=== PATIENT | female | born 1970 | race Caucasian/White ===

== ENCOUNTER 2017-05-18 16:30 | Outpatient (RCR) | payer OTHER, SELFPAY ==
--- NOTE | 2017-04-12 17:06 | HP.PTEVAL_ITS ---
Patient's Visit Information ZOEY ESPINOZA is a 46 year old F referred to Physical Therapy by Geetha FOUNTAIN with a diagnosis of cervical radiculopathy. Date of Evaluation: 04/12/17 Physical Therapist: Shawna Fritz - Visit Plan Frequency: 2x /Week Duration: 4 Weeks Plan: 2X/ week for DN to mid traps, levator, occiput, pec (L) as well as pec stretches , scapular strength, postural exercises with HEP and modalities PRN - Subjective Subjective: Pt reports that she has been having the problem off and on for years and she gets pain on the L side of her chest and down the L arm, neck is stiff and sore and the L handgets numb. Pt went to the Chiropractor and she worked on L pec muscle and it is better. IF she does any exercises above the head she has increased pain and cant sleep and it gets tighter and tighter. She had an x-ray 4 years ago. This comes and goes and she knows what to avoid. She doesnt sleep and she gets REYES when this occurs. Neck does not feel felxible and she does not feel she has full mobility. She is a teacher. She goes to [facility]. Pt admits to using her mid traps with lifting and when sitting with posture or with stressful situations. - Pain L shoulder pain Pain Intensity (Out of 10): 0 Neck pain Pain Intensity (Out of 10): 0 - Objective L handed 64# L and R is 65#. C-spine AROM: Rotation B 100%, Ext 75%, SB B 75% , fkexion 100%. Full B shoulder AROM. UE MMT: B shld flex, abd Er, and IR 4/ 5 B. Tender under the L acromion, Tender B mid traps, levator, sub occiput. Pt felt a goos stretch with c-spine distraction. Tight Pecs B - Goals Goal 1:: I HEP Goal Time Frame: 4-6 Weeks Goal 2:: Return to work out without having shoulder or neck pain with arm strengthening Goal Time Frame: 4-6 Weeks Goal 3:: Sit with upright posture during treatment sessions Goal Time Frame: 4-6 Weeks - Rehabilitation Potential Rehabilitation Potential: Good - Anticipated Interventions Patient/Client Instruction: Educate patient on: Condition, Plan of Care For the Purpose of:: To decrease pain, To increase ROM, To improve nutrient delivery to tissue, To improve muscle performance and motor function, To improve ability to perform ADL's, To increase tolerance to activity/condition/ position, To improve health of tissue, To decrease soft tissue restriction, To increase flexibility/ROM Therapeutic Exercise to Include: Strength training, Postural training, Flexibilty training, Passive ROM, Active ROM, Scapular Strength/Stabilization For the Purpose of:: To decrease pain, To increase ROM, To improve nutrient delivery to tissue, To improve muscle performance and motor function, To improve ability to perform ADL's, To improve ability of physical actions for home/community/work/leisure, To improve health of tissue, To decrease soft tissue restriction, To increase flexibility/ROM Manual Therapy Techniques to Include: Mobilization, Passive ROM, Functional dry needling, Soft tissue mobilization For the Purpose of:: To decrease pain, To increase ROM, To improve nutrient delivery to tissue, To improve muscle performance and motor function, To improve health of tissue, To increase flexibility/ROM IF ES: Yes Cryotherapy (ice pack, ice massage): Yes Thermo therapy (hot pack): Yes Ultrasound (thermal/non thermal): Yes For the Purpose of:: To decrease pain, To increase ROM, To improve nutrient delivery to tissue, To improve muscle performance and motor function, To improve health of tissue, To decrease soft tissue restriction Thank you for the opportunity to evaluate your patient. For Medicare and Medicare HMO plans, please review the plan of care and approve it. It will need to be FAXED BACK to us at [phone] for Medicare purposes. Please let me know if there are questions or concerns regarding this plan of care. Physician Signature: Date:
--- NOTE | 2017-08-19 09:48 | HP.PTDCSUM_ITS ---
HP - PT D/C Summary It has been my pleasure to treat ZOEY ESPINOZA under orders from Geetha Galaviz, for the diagnosis of cervical radiculopathy for a total of 9 visit(s). Discharge Date: 08/19/17 Please see the following information for a summary of their discharge status. - Subjective Subjective: Pt reports that she is doing really well and would like to put PT on hold and see if she can maintain her pain level with posture and work outs at her gym. - Pain L shoulder pain Pain Intensity (Out of 10): 1 Neck pain Pain Intensity (Out of 10): 0 back pain Pain Intensity (Out of 10): 0 - Objective Objective/Function: C-spine AROM: flexion 100%, Rot B 100%, ext 95%, SB B 100% . Tightness felt along the levators B, mid traps. Good posture dring treatment today. - Goals Goal 1:: I HEP Goal Progress: Goal Met Goal 2:: Return to work out without having shoulder or neck pain with arm strengthening Goal Progress: Progressing Goal 3:: Sit with upright posture during treatment sessions Goal Progress: Goal Met - Plan Plan: Hold chart X 2 weeks and then DC if pt does not schedule another appt in 2 weeks. - D/C Information Discharge Comments: DC PT If there are questions or concerns regarding this patient's physical therapy, please feel free to call me at [phone]. Thank you for the referral of this patient. Sincerely, Shawna Fritz
== END 2017-05-18 19:00 | disposition home or self-care (01) ==
LOC: PT 16:30
PROVIDERS: Family Provider Internal Medicine; PCP Internal Medicine; Visit Provider Internal Medicine
DX: M54.12 Radiculopathy, cervical region (principal)
CPT/HCPCS: 97014; 97110; 97140; 97161; 97530; G0283

== ENCOUNTER → 2017-09-26 16:09 | Outpatient (CLI) | payer OTHER, SELFPAY ==
--- NOTE | 2017-09-26 16:12 | US_ITS ---
STUDY: ULTRASOUND OF THE FEMALE PELVIS - COMPLETE REASON FOR EXAM: Female, 47 years old. Abdominal pain and bloating LMP: Unknown. TECHNIQUE: Transabdominal and Transvaginal. TECHNICAL QUALITY: Adequate. COMPARISON: None. FINDINGS: The uterus is anteverted and is in a midline position. The uterus measures 7.1 x 3.7 x 2.7 cm. There is a Nabothian cyst of the cervix. The endometrium measures 3 mm in thickness, and is hyperechoic. There is no demonstrated endometrial mass. There is no demonstrated myometrial mass. I.U.D. - The patient does not have an I.U.D. The right ovary is visualized. The right ovary measures 2.2 x 2.1 x 0.8 cm. There is no right ovarian cyst or ovarian mass. There is no visualized right adnexal mass or complex lesion. There is normal arterial and normal venous vascularity. The left ovary is visualized. The left ovary measures 1.6 x 1.2 x 1.0 cm. There is no left ovarian cyst or ovarian mass. There is no visualized left adnexal mass or complex lesion. There is normal arterial and normal venous vascularity. There is no fluid in the cul-de-sac. The pre void volume of the bladder was 124 ml. US/Transvaginal Non- IMPRESSION: Normal female pelvis. Electronically Signed: Alfredo Wells MD at 23:55 EDT , Service support ,
== END ==
PROVIDERS: Family Provider Internal Medicine; PCP Internal Medicine; Visit Provider Nurse Practitioner
DX: R10.9 Unspecified abdominal pain (principal)
CPT/HCPCS: 76830; 93976

== ENCOUNTER → 2017-10-07 09:26 | Outpatient (CLI) | payer OTHER, SELFPAY ==
--- NOTE | 2017-10-07 09:27 | RAD_ITS ---
PROCEDURE: SMALL BOWEL SERIES DATE OF EXAMINATION: October 07, 2017.. INDICATION: Female, 47 years old. Abdominal pain and cramping. Diarrhea. PHYSICIAN: Farrukh Simmons M.D. FLUOROSCOPY TIME (if supplied): (0:43) minutes/seconds TECHNIQUE: Radiographic and fluoroscopic images were taken of the small intestine following the ingestion of barium. COMPARISON: None. FINDINGS: A preliminary supine KUB was obtained. There is an unremarkable bowel gas pattern. Fecal material is present throughout the colon. The lung bases are unremarkable. The osseous structures are normal. The patient orally ingested approximately 12 ounces of thin barium Normal visualized fundus, body, and antrum of the stomach. Normal duodenal bulb, C-loop, and proximal jejunum. Normal visualized mucosal folds of the jejunum and ileum. There are no demonstrated dilatations, strictures, or masses of the small intestine. There is no mass displacement of the loops of small intestine. There is a normal motor pattern with barium reaching the colon within approximately 30 minutes. Spot films under fluoroscopic observation demonstrated a normal terminal ileum and ileocecal valve. RAD/Small Bowel Series Only IMPRESSION: Normal small bowel series. Electronically Signed: Farrukh Simmons MD at 13:46 EDT Tel [phone], Service support ,
== END ==
PROVIDERS: Family Provider Internal Medicine; PCP Internal Medicine; Visit Provider Nurse Practitioner
DX: R10.9 Unspecified abdominal pain (principal); R14.0 Abdominal distension (gaseous)
CPT/HCPCS: 74250

== ENCOUNTER → 2017-10-10 15:38 | Outpatient (CLI) | payer OTHER, SELFPAY ==
--- NOTE | 2017-10-10 12:45 | COLBX_PTH ---
PATIENT: ZOEY ESPINOZA [facility] U#:[id number] AGE/SX: 54/F ROOM: RE10/10/[address]: Dr. Moustapha Sanches MD : 1970 BED: DIS: SPEC #: [id number] RECD: 10/10/17 15:13 STATUS: DMITRI NAVID #: [id number] JOEL: 10/10/17 12:[address]: Moustapha Sanches DEPT: SURGICAL PATHOLOGY RECD BY: Phillip Patel ENTERED: 10/12/17 09:09 SP TYPE: COLON BX LENA DR: SADE Tissues: A - COLON BIOPSY B - Cecum, NOS C - Sigmoid colon biopsy Procedures: Surgery Specimen Level IV HEADER OPERATION: Colonoscopy with biopsy and polypectomy PRE-OP DIAGNOSIS: Diarrhea/bloating TISSUE SUBMITTED: A. Right and left colon biopsy ? rule out microscopic colitis, B. Cecum polyp biopsy ? rule out adenoma, C. Distal sigmoid polyp ? rule out adenoma MICROSCOPIC DIAGNOSIS A. Right and left colon biopsy: Focal acute colitis. See microscopic description and comment. B. Cecum polyp, polypectomy: Tubular adenoma. C. Distal sigmoid polyp, polypectomy: Fragments of tubulovillous adenoma. SJ:lyndsey 10/13/17 COMMENT A. Correlation with clinical, endoscopic findings and appropriate follow up are necessary. MICROSCOPIC DESCRIPTION Slides are reviewed. A. The specimen shows fragments of colonic mucosa with acute and chronic inflammatory cell Infiltrates in the lamina propria and cryptitis. Crypt abscesses, glandular distortion and granulomas are not seen. The finding of focal acute colitis is usually an incidental finding. Rarely can it be associated with infectious, self limited colitis or inflammatory bowel disease. GROSS DESCRIPTION A - Received in fixative is one container labeled with the patient's name and designated right and left colon. The specimen consists of multiple irregular fragments of light sr soft tissue that in aggregate measure 2 x 0.5 x 0.1 cm. The specimen is totally submitted in one cassette. B - Received in fixative is one container labeled with the patient's name and designated cecum polyp. The specimen consists of one irregular fragment of light sr soft tissue that measures 0.3 x 0.3 x 0.1 cm. The specimen is totally submitted in one cassette. C - Received in fixative is one container labeled with the patient's name and designated distal sigmoid. The specimen consists of two polypoid pieces of sr soft tissue measuring 1 x 0.7 x 0.7 cm and 1.3 x 1 x 1 cm. Both pieces are bisected. The entire specimen is submitted in one cassette. / MARGI:lyndsey 10/12/17 TC:1 CPT: 69395 x3
== END ==
PROVIDERS: Visit Provider Internal Medicine Gastroenterology
DX: R19.7 Diarrhea, unspecified (principal); R14.0 Abdominal distension (gaseous)
CPT/HCPCS: 88305

== ENCOUNTER → 2017-12-22 14:46 | Outpatient (CLI) | payer OTHER, SELFPAY ==
--- NOTE | 2017-12-22 14:49 | BI_ITS ---
MAMMOGRAPHY - BILATERAL SCREENING 3-D ENZO SYNTHESIS REASON FOR EXAM: Female, 47 years old. Bilateral Screening 3-D tomosynthesis. PERTINENT HISTORY: No significant family history. TECHNIQUE: 2-D mammograms and 3-D Enzo synthesis of the breast (s) were performed. CAD was performed. COMPARISON: 04/09/2016 through 03/02/2014. FINDINGS: The breast composition is composed of scattered fibroglandular density. Scattered benign appearing calcifications are seen. No dense spiculated masses or suspicious microcalcification cluster are identified. No architectural distortion or asymmetric density is identified. There is no skin thickening or nipple retraction identified. There has been no significant change identified since the prior study. BI/SCREENING MAMM (CAD), BILAT IMPRESSION: No mammographic sign of malignancy. Routine yearly mammograms recommended. ASSESSMENT CATEGORY: BIRADS Category 2: Benign. A letter regarding these results will be sent to the patient by the facility within 30 days. FOLLOW UP RECOMMENDATION: Yearly follow up mammogram recommended. (A) Negative mammographic results should not deter biopsy as a palpable lesion if present should be followed based on clinical grounds and biopsy performed if clinically persistent for 3 months or increasing size. Approximately 10% of breast cancers are not detected by mammography. A normal mammogram should not delay biopsy of a clinically suspicious abnormality. Electronically Signed: Jean-Pierre Edgar, at 18:02 EDT Tel , Service support ,
--- NOTE | 2017-12-22 14:50 | BD_ITS ---
STUDY: DUAL ENERGY X-RAY ABSORPTIOMETRY / DXA REASON FOR EXAM: Female, 47 years old. Early menopause TECHNIQUE: Bone Mineral Density (BMD) measurements of lumbar spine and bilateral hips were obtained. COMPARISON: None. FINDINGS: Lumbar Spine (L1-L4): g/cm2 (1.092) / T-score (-0.7) / Z-score (-0.3) Findings are suggestive of normal bone density with a low fracture risk. Left Femur Total: g/cm2 (1.110) / T-score (0.8) / Z-score (1.3) Left Femoral Neck: g/cm2 (1.040) / T-score (0.0) / Z-score (0.8) Right Femur Total: g/cm2 (1.045) / T-score (0.3) / Z-score (0.7) Right Femoral Neck: g/cm2 (0.993) / T-score (-0.3) / Z-score (0.4) BD/Dexa Bone Density Study IMPRESSION: The patient is considered normal as outlined below according to World Pierre Organization (WHO) criteria with a low fracture risk. Reference Information: The T-score is the number of standard deviations above or below the standard which is normal for young adults at their peak bone mineral density. The World Health Organization (WHO) interprets the T-scores as follows: Above -1 Normal bone density Between -1 and -2.5 Osteopenia Equal to / or below -2.5 Osteoporosis As a practical clinical guideline, osteopenia may be graded as follows: Mild -1 through -1.5 Moderate -1.6 through -2.0 Severe -2.1 through -2.4 The Z-score is the number of standard deviations above or below age-matched controls. A Z-score of less than -1.5 would be considered abnormal. References: 1. NIH Osteoporosis and Related Bone Diseases http://www.osteo.org 2. International Society for Clinical Densitometry http://www.iscd.org 3. National Osteoporosis Foundation http://www.nof.org Electronically Signed: Brock Louis MD at 8:28 EDT , Service support ,
== END ==
PROVIDERS: PCP Internal Medicine; Visit Provider Internal Medicine
DX: Z12.31 Encounter for screening mammogram for malignant neoplasm of breast (principal); Z78.0 Asymptomatic menopausal state
CPT/HCPCS: 77063; 77067; 77080

== ENCOUNTER → 2018-04-26 14:53 | Outpatient (CLI) | payer OTHER, SELFPAY ==
--- NOTE | 2018-04-26 14:56 | US_ITS ---
STUDY: THYROID ULTRASOUND REASON FOR EXAM: Female, 48 years old. Thyromegaly, history of Synthroid. TECHNIQUE: Ultrasound evaluation of the thyroid was performed with real-time and static balderas-scale imaging. COMPARISON: None. FINDINGS: RIGHT LOBE: The right thyroid gland measures 34 x 10 x 14 mm. The gland is diffusely heterogeneous. Inferior to the right thyroid and there is a nodule measuring 7 x 6 x 5 mm. There is a 9 x 5 x 7 mm heterogeneously hypoechoic part cystic and part solid nodule of the right thyroid gland. LEFT LOBE: The left thyroid measures 35 x 9 x 10 mm, diffusely heterogeneous. No dominant nodule. Bilaterally, thyroid vascularity is normal. ISTHMUS: The isthmus measures 2 mm, heterogeneous echotexture. . US/Thyroid IMPRESSION: A 7 x 6 x 5 mm nodule lies inferior to the margin of the right thyroid gland and may represent a small lymph node or small exophytic thyroid nodule. The gland is diffusely heterogeneous bilaterally, not enlarged. These features are consistent with sequela of chronic thyroiditis. There is no dominant nodule requiring biopsy. For the existing small thyroid nodules, follow-up surveillance imaging would be appropriate. Follow-up ultrasound in approximately one year is recommended. Electronically Signed: Hermilo Heredia MD at 16:32 EST Tel , Service support ,
== END ==
PROVIDERS: Family Provider Internal Medicine; PCP Internal Medicine; Referring Provider Internal Medicine; Visit Provider Internal Medicine
DX: E01.0 Iodine-deficiency related diffuse (endemic) goiter (principal)
CPT/HCPCS: 76536

== ENCOUNTER → 2018-12-25 | Outpatient (CLI) | payer OTHER, SELFPAY ==
--- NOTE | 2018-12-25 15:00 | BI_ITS ---
BILATERAL DIGITAL MAMMOGRAM WITH TOMOSYNTHESIS: Mediolateraloblique and craniocaudal views was performed. In the superior lateral aspect of the left breast at about the 1:00 position is a questionable density which was not seen on the previous study. This probably represents a focal area of fibrocystic change as it is best seen on the craniocaudal image and more difficult to visualize on the MLO image. Because underlying mass lesion cannot be completely excluded a targeted left breast ultrasound of the superior lateral aspect of the left breast is recommended for additional evaluation. No cluster of microcalcifications or architectural distortion is seen. No evidence of skin thickening is identified. Comparison is made to previous study obtained on 12/22/2017. Breast Density: The breast tissue is heterogeneously dense, which may obscure small masses. CAD was used to assist in final assessment. IMPRESSION: NORMAL MAMMOGRAM BILATERALLY. FINAL ASSESSMENT: A questionable density is noted in the superior lateral aspect of the left breast at the 1:00 position which probably represents focal fibrocystic change, however, underlying mass lesion cannot be completely excluded. For this reason, a targeted left breast ultrasound to the superior lateral aspect the left breast is recommended for further evaluation. FINAL ASSESSMENT: BI-RAD CATEGORY 0 INCOMPLETE: (NEEDS ADDITIONAL IMAGINING EVALUATION) YEARLY MAMMOGRAPHY RECOMMENDED Approximately 10% of breast cancers are not detected by mammography. A normal mammogram should not delay biopsy of a clinically suspicious abnormality. Electronically Signed: Jose Enrique Baldwin, at 18:04 EDT Tel , Service support , BI/SCREEN MAMM (CAD) W/ENZO ARVIZU
== END | disposition home or self-care (01) ==
LOC: OPBI 14:59
PROVIDERS: Family Provider Internal Medicine; PCP Internal Medicine; Referring Provider Internal Medicine; Visit Provider Internal Medicine
DX: Z12.31 Encounter for screening mammogram for malignant neoplasm of breast (principal)
CPT/HCPCS: 77063; 77067

== ENCOUNTER → 2019-01-02 | Outpatient (CLI) | payer OTHER, SELFPAY ==
--- NOTE | 2019-01-02 15:05 | US_ITS ---
STUDY: ULTRASOUND BREAST - LEFT REASON FOR EXAM: Female, 48 years old. Abnormal screening mammogram. TECHNIQUE: Axial and longitudinal images of the LEFT breast were performed with a high resolution ultrasound transducer. COMPARISON: Comparison is made with prior mammogram dated December 25, 2018. FINDINGS: LEFT Breast: The upper outer quadrant of the left breast was examined by ultrasound. No sonographic abnormality is seen. US/Breast Limited Unilateral IMPRESSION: No sonographic abnormality is seen. Follow-up mammogram in 1 year is recommended. ASSESSMENT CATEGORY: BIRADS Category 2: Benign. A letter regarding these results will be sent to the patient by the facility within 30 days. Electronically Signed: Farrukh Simmons, at 10:39 EDT , Service support ,
== END | disposition home or self-care (01) ==
LOC: OPUS 15:04
PROVIDERS: Family Provider Internal Medicine; PCP Internal Medicine; Referring Provider Internal Medicine; Visit Provider Internal Medicine
DX: R92.2 Inconclusive mammogram (principal)
CPT/HCPCS: 76642

== ENCOUNTER → 2019-12-03 08:49 | Outpatient (CLI) | payer OTHER, SELFPAY ==
--- NOTE | 2019-12-03 08:53 | RAD_ITS ---
STUDY: X-RAY - PELVIS AND BILATERAL HIPS REASON FOR EXAM: Female, 49 years old. PAIN IN BOTH HIPS, WORSE SOMETIMES ON THE RIGHT AND RADIATES INTO BOTH LEGS AT TIMES. HAS BEEN GOING ON FOR A COUPLE OF MONTHS NOW. NO KNOWN INJURY. TECHNIQUE: AP view of the pelvis.? 2 views of the right hip, and 2 views of the left hip were obtained. COMPARISON: None. FINDINGS: There is a non-specific bowel gas pattern. Normal visualized soft tissue structures. 5 Normal bilateral iliac wings, sacroiliac joints and visualized sacrum. Normal bilateral superior and inferior pubic rami. Normal pubic symphysis. Normal bilateral ischial tuberosities. Normal visualized right femoral head. Normal right acetabulum. Normal right hip joint. Normal visualized left femoral head. Normal left acetabulum. Normal left hip joint. RAD/Hips B/L min 2 views w/ Pelvis IMPRESSION: Normal x-ray examination of the pelvis and bilateral hips. Electronically Signed: Farrukh Simmons, at 15:49 EDT , Service support ,
== END ==
PROVIDERS: PCP Internal Medicine; Referring Provider Internal Medicine; Visit Provider Internal Medicine
DX: M25.551 Pain in right hip (principal); M25.552 Pain in left hip
CPT/HCPCS: 73521

== ENCOUNTER → 2020-03-31 08:59 | Outpatient (CLI) | payer OTHER, SELFPAY ==
[2020-03-06 09:35] VITALS: BMI 34.7
--- NOTE | 2020-03-31 10:50 | TELEMED_ITS ---
[facility] has confirmed receipt of a request for visit. This document confirms receipt of the order initiating the consult. To find the results of the consultation, please view the patient's reports for the scanned Telemed Consult.
== END ==
PROVIDERS: PCP Internal Medicine; Referring Provider Psychiatry & Neurology Neurology; Visit Provider Psychiatry & Neurology Neurology
DX: G40.909 Epilepsy, unspecified, not intractable, without status epilepticus (principal)
CPT/HCPCS: 95819

== ENCOUNTER 2021-04-15 15:30 | Outpatient (RCR) | payer OTHER, SELFPAY ==
--- NOTE | 2021-02-06 16:03 | HP.PTEVAL ---
Patient's Visit Information ZOEY ESPINOZA is a 50 year old F referred to Physical Therapy by Dr. Geetha Galaviz DO with a diagnosis of R hip pain. Date of Evaluation: 02/06/21 Physical Therapist: LEESA Valdes - Visit Plan Frequency: 1x/Week Duration: 4 Weeks Plan: 2X/ week for 4 weeks for L pirformis stretches, foam rolling, strengthening of L hip and core with HEP and modalities as needed with HEP. HEP: chair piriformis foam rolling and supine and seated piriformis stretches - Subjective Pt reports that both her hips bother her but the R is the worst. She reports that it is always there but it is worse with deep bending, climbing a latter, hip flexion, scrub floor on hands and knees. She can not lay on that R side. It wakes her up. It has been going on for 3-4 years and progressivly gotten worse. She feels it in her but and down the front of the leg and her leg gets tired in the knee. She has moved into a new house and has been doing a lot of bending and ladder stuff etc. She points to the pain being R Glut area and at the hip socket. X-ray was clear. She has tons of LBP. She does see a chiropractor. Going up and down steps are not an issue unless really does too much. - Pain R hip pain Pain Intensity (Out of 10): 0 - Objective Gait: walks with decrease stance time on the R LE and + Trendelenburg. Normal IT band length on the R. Tight R piriformis on the R. LE MMT:B hip flex 4-/5, R hip abd 4-/5 and L hip abd 4/5, B hip ext 3+/5, B knee flex and ext 4/5. Palpation: tenderness felt at piriformis tendon and along the muscle belly. Patellar DTR's 2+/3 B. Pt felt the foam rolling of the piriformis sitting on the chair and supine and seated piriformis stetches. -SLR - Balance/Special Test Scores Lower Extremity Functional Score: 52 - Goals Goal 1:: I HEP Goal Time Frame: 4-6 Weeks Goal 2:: Increase L hip strength to 4/5 L hip ext, flex, abd Goal Time Frame: 4-6 Weeks Goal 3:: Decrease L hip pain to less than 2/10 with ladders, squatting etc Goal Time Frame: 4-6 Weeks - Rehabilitation Potential Rehabilitation Potential: Good - Anticipated Interventions Patient/Client Instruction: Educate patient on: Condition, Plan of Care For the Purpose of:: To decrease pain, To decrease swelling/inflammation, To increase ROM, To improve nutrient delivery to tissue, To improve muscle performance and motor function, To improve ability to perform ADL's, To increase tolerance to activity/condition/position, To improve performance and independence with ADL's, To improve gait and locomotor functions, To improve health of tissue, To decrease soft tissue restriction, To increase flexibility/ROM Therapeutic Exercise to Include: Strength training, Flexibilty training, Gait and locomotor training, Passive ROM, Active ROM, Dynamic Lumbar Stabilization For the Purpose of:: To decrease pain, To increase ROM, To improve nutrient delivery to tissue, To improve muscle performance and motor function, To increase tolerance to activity/condition/position, To improve performance and independence with ADL's, To decrease level of supervision to perform tasks, To improve ability of physical actions for home/community/work/leisure, To improve gait and locomotor functions, To improve health of tissue, To decrease soft tissue restriction, To increase flexibility/ROM Manual Therapy Techniques to Include: Mobilization, Passive ROM, Soft tissue mobilization For the Purpose of:: To decrease pain, To decrease swelling/inflammation, To improve nutrient delivery to tissue, To improve muscle performance and motor function IF ES: Yes Cryotherapy (ice pack, ice massage): Yes Thermo therapy (hot pack): Yes Ultrasound (thermal/non thermal): Yes For the Purpose of:: To decrease pain, To decrease swelling/inflammation, To increase ROM, To improve nutrient delivery to tissue, To improve muscle performance and motor function Thank you for the opportunity to evaluate your patient. For Medicare and Medicare HMO plans, please review the plan of care and approve it. It will need to be FAXED BACK to us at [phone] for Medicare purposes. For Medicare only, by signing this I certify the plan of care. Please let me know if there are questions or concerns regarding this plan of care. Physician Signature: Date:
--- NOTE | 2021-04-15 17:57 | HP.PTDCSUM ---
It has been my pleasure to treat ZOEY ESPINOZA referred by Dr. Geetha Galaviz DO, with the diagnosis of R hip pain for a total of 11 visit(s). Discharge Date: 04/15/21 Please see the following information for a summary of their discharge status. Subjective: Pt rolled over in bed Tuesday morning and her neck popped and she could hardly move. B sides of her hips hurt today. She reports that PT makes her feel better temporarily. She feels that her hip might be coming from her back and wants to see and Ortho. Instructed pt to call her referring physician to talk next step. SHe also started taking celebrex the last 2 days and wants to try it for a week and see if it helps. R hip pain Pain Intensity (Out of 10): 4 % Improvement: 25 Objective/Function: LE MMT: B hip flex 4/5, hip abd B 4/5, hip ext 4-/5 B Goal 1:: I HEP Goal Progress: Goal Met Goal 2:: Increase L hip strength to 4/5 L hip ext, flex, abd Goal Progress: Goal Met Goal 3:: Decrease L hip pain to less than 2/10 with ladders, squatting etc Goal Progress: Not Progressing Plan: Return to PCP for next step... MRI vs Ortho consult. Continue HEP. Discharge Comments: DC PT back to physician If there are questions or concerns regarding this patient's physical therapy, please feel free to call me at [phone]. Thank you for the referral of this patient. Sincerely, Shawna Fritz, MPT Balance/Gait/Functional tests - Balance/Special Test Scores Lower Extremity Functional Score: 49
== END 2021-04-15 19:00 | disposition home or self-care (01) ==
LOC: PT 15:30
PROVIDERS: PCP Internal Medicine; Referring Provider Internal Medicine; Visit Provider Internal Medicine
DX: M25.551 Pain in right hip (principal)
CPT/HCPCS: 97035; 97110; 97161; 97530

== ENCOUNTER 2021-06-25 10:09 | Outpatient (CLI) | payer OTHER, SELFPAY ==
--- NOTE | 2021-06-25 10:21 | EKG12_ITS ---
Test Reason : PREOP Blood Pressure : / mmHG Vent. Rate : 073 BPM Atrial Rate : 073 BPM P-R Int : 134 ms QRS Dur : 074 ms QT Int : 372 ms P-R-T Axes : 008 010 019 degrees QTc Int : 409 ms Normal sinus rhythm with sinus arrhythmia Low voltage QRS Borderline ECG Reconfirmed by RASHAWN FAGAN, ARIS ([id number]), editor continuity and script EDDIE HUANG ([id number]) on 07/02/2021 9:00:41 AM Referred By: Dimas Epps Confirmed By:ARIS MOROCHO MD
== END 2021-06-25 23:59 | disposition home or self-care (01) ==
PROVIDERS: PCP Internal Medicine; Referring Provider Urology; Visit Provider Urology
DX: Z01.810 Encounter for preprocedural cardiovascular examination (principal)
CPT/HCPCS: 93005

== ENCOUNTER 2021-07-01 08:08 | Outpatient (CLI) | payer OTHER, SELFPAY ==
--- NOTE | 2021-07-01 08:10 | BI_ITS ---
MAMMOGRAPHY - BILATERAL SCREENING REASON FOR EXAM: Female, 51 years old. Routine annual screening examination. PERTINENT HISTORY: Non-contributory. TECHNIQUE: Digital bilateral breast enzo (3D mammographic acquisition) in the CC and MLO projections. 2-D mediolateral oblique (MLO) and craniocaudad (CC) views of both breasts were obtained. CAD: Full Field Digital Mammography with Computer Added Detection was performed. COMPARISON: Comparison is made with prior examination dated 12/25/2018 and 12/22/2017. FINDINGS: Breast Composition: There are scattered areas of fibroglandular density. There are no dominant masses or suspicious calcifications. No other significant abnormalities are identified. There has been no significant change since the prior study. BI/SCRN MAMM (CAD)W/ENZO BILAT IMPRESSION: Stable bilateral screening mammogram. Yearly follow-up mammogram recommended. (A) ASSESSMENT CATEGORY: BIRADS Category 1: Negative. A letter regarding these results will be sent to the patient by the facility within 30 days. Approximately 10% of breast cancers are not detected by mammography. A normal mammogram should not delay biopsy of a clinically suspicious abnormality. [id number] Electronically Signed: Farrukh Simmons MD at 9:36 EDT ,
== END 2021-07-01 23:59 | disposition home or self-care (01) ==
LOC: OPBI 08:08
PROVIDERS: PCP Internal Medicine; Visit Provider Internal Medicine
DX: Z12.31 Encounter for screening mammogram for malignant neoplasm of breast (principal)
CPT/HCPCS: 77063; 77067

== ENCOUNTER → 2022-08-19 | Outpatient (CLI) | payer OTHER, SELFPAY | END | disposition home or self-care (01) | LOC: RAD 12:44 | PROVIDERS: PCP Internal Medicine; Referring Provider Internal Medicine; Visit Provider Internal Medicine | DX: Z00.00 Encounter for general adult medical examination without abnormal findings (principal) ==

== ENCOUNTER → 2022-09-24 | Outpatient (CLI) | payer OTHER, SELFPAY ==
--- NOTE | 2022-09-24 09:32 | BI_ITS ---
MAMMOGRAPHY - BILATERAL SCREENING REASON FOR EXAM: Female, 52 years old. Routine annual screening examination. PERTINENT HISTORY: Non-contributory. TECHNIQUE: Digital bilateral breast enzo (3D mammographic acquisition) in the CC and MLO projections. 2-D mediolateral oblique (MLO) and craniocaudad (CC) views of both breasts were obtained. CAD: Full Field Digital Mammography with Computer Added Detection was performed. COMPARISON: Comparison is made with prior study dated July 01, 2021 and December 25, 2018. FINDINGS: Breast Composition: There are scattered areas of fibroglandular density. There are no dominant masses or suspicious calcifications. No other significant abnormalities are identified. There has been no significant change since the prior study. BI/SCRN MAMM (CAD)W/ENZO BILAT IMPRESSION: Stable bilateral screening mammogram. Yearly follow-up mammogram recommended. (A) ASSESSMENT CATEGORY: BIRADS Category 1: Negative. A letter regarding these results will be sent to the patient by the facility within 30 days. Approximately 10% of breast cancers are not detected by mammography. A normal mammogram should not delay biopsy of a clinically suspicious abnormality. [id number] Electronically Signed: Farrukh Simmons MD at 11:08 EDT ,
== END | disposition home or self-care (01) ==
LOC: OPBI 09:31
PROVIDERS: PCP Internal Medicine; Referring Provider Internal Medicine; Visit Provider Internal Medicine
DX: Z12.31 Encounter for screening mammogram for malignant neoplasm of breast (principal)
CPT/HCPCS: 77063; 77067

== ENCOUNTER → 2023-03-29 | Outpatient (CLI) | payer OTHER, SELFPAY ==
--- NOTE | 2023-03-29 15:32 | MRI_ITS ---
INDICATION: NYSTAGMUS, ORBITS EXAMINATION: MRI - MR Brain WO/W Contrast TECHNIQUE: Multiplanar and multisequence MR images of the brain were obtained without and with gadolinium. IV Contrast Dosage and Agent: 19 cc Clariscan COMPARISON: No relevant prior comparison study available FINDINGS: BRAIN PARENCHYMA: No MRI evidence of hemorrhage. No evidence of acute infarct. No intracranial mass or mass effect. There is preservation of the balderas/white matter interface. Normal sella turcica, pituitary gland, infundibular stalk, optic chiasm and hypothalamus. Posterior fossa structures are unremarkable. INTERNAL AUDITORY CANALS: The internal auditory canals are well visualized and patent. No mass identified. CSF SPACES: Appropriate for age. No hydrocephalus. Basal cisterns are patent. VASCULAR SYSTEM: Normal flow voids in the major intracranial circulation. CALVARIUM, SKULL BASE, PARANASAL SINUSES AND MASTOID AIR CELLS: Clear. No expansile changes. ORBITS: Both globes, extraocular muscles, optic nerves and retrobulbar fat appear unremarkable. MRI/Brain W/WO Contrast IMPRESSION: Negative MRI Brain. Electronically Signed: Jesus Barrow MD at 19:45 EST ,
== END | disposition home or self-care (01) ==
PROVIDERS: PCP Internal Medicine; Referring Provider Internal Medicine; Visit Provider Internal Medicine
DX: H55.00 Unspecified nystagmus (principal)
CPT/HCPCS: 70553; A9575

== ENCOUNTER → 2023-06-08 | Outpatient (CLI) | payer OTHER, SELFPAY ==
--- NOTE | 2023-06-08 07:29 | US_ITS ---
STUDY: ABDOMINAL ULTRASOUND - LEFT UPPER QUADRANT REASON FOR EXAM: Female, 53 years old. LUQ pain x 5 months TECHNIQUE: Transabdominal ultrasound was performed with real-time and static balderas scale imaging. TECHNICAL QUALITY: Adequate. COMPARISON: None. FINDINGS: Spleen: Normal size of the spleen. The spleen measures 11.3 cm x 4.3 cm x 3.9 cm. Left Kidney: Normal size of the left kidney. The left kidney measures 11.4 cm x 4.9 cm x 4.7 cm. Normal renal cortex. The left cortex measures cm. There is no demonstrated renal mass or cyst. There is no left hydronephrosis. US/Abdomen Limited IMPRESSION: Normal left upper quadrant abdominal ultrasound examination. . Electronically Signed: Farrukh Simmons MD at 12:35 EDT ,
== END | disposition home or self-care (01) ==
PROVIDERS: PCP Internal Medicine; Referring Provider Internal Medicine; Visit Provider Internal Medicine
DX: R10.12 Left upper quadrant pain (principal)
CPT/HCPCS: 76705

== ENCOUNTER → 2023-06-17 | Outpatient (CLI) | payer OTHER, SELFPAY ==
--- NOTE | 2023-06-17 08:59 | RDU_ITS ---
Reason For Study: Renal insufficiency Right Renal Artery Left Renal Artery Right renal artery ostium Left renal artery ostium 97.9/29.8 104.5/34.2 RSV/EDV. PSV/EDV. Right renal artery proximal Left renal artery proximal PSV/EDV 135.2/47.4 PSV/EDV. 113.2/40.8 . Right renal artery mid 133/47.4 Left renal artery mid 106.7/43 PSV/EDV. PSV/EDV . Right renal artery distal Left renal artery distal 88.9/34.7 117.6/45.2 PSV/EDV. PSV/EDV. Right RAR 1.42. Left RAR 1.19. Right Renal Parenchyma Left Renal Parenchyma Upper Pole Medula 23.1/8.4 PSV/EDV. Left upper pole medulla 27/9.2 Right upper pole medulla EDR 0.4 . PSV/EDV . Right upper pole medulla R.I. Left upper pole medulla EDR 0.3 . 0.64 . Left upper pole medulla R.I. 0.66 . Upper Pernell Cortx 15.7/6.4 PSV/EDV. UP Cortex 21.4/9.8 PSV/EDV. Right upper pole cortex EDR 0.4 . Left upper pole cortex EDR 0.5 . Right upper pole cortex R.I. 0.59 . Left upper pole cortex R.I. 0.54 . Right lower Pole medulla 25.6/11.3 Left lower Pole medulla 34.9/15.3 PSV/EDV . PSV/EDV . Right lower pole medulla EDR 0.4 . Left lower pole medulla EDR 0.4 . Right lower pole medulla R.I. Left lower pole medulla R.I. 0.56 . 0.56 . Lower Pole Cortx 16.5/6.1 PSV/EDV. Lower Pole Cortex 17.9/8 PSV/EDV. Left lower pole cortex EDR 0.4 . Right lower pole cortex EDR 0.4 . Left lower pole cortex R.I. 0.63 . Right lower pole cortex R.I. 0.55 . Left Renal Hilar Right Renal Hilar LT Hilar avg 54.2/18 PSV/EDV . Right Hilar avg 87.9/33.9 PSV/EDV. Left hilar acceleration time 70 Right hilar acceleration time 60 m/sec. m/sec. Left Renal Dimensions Right Renal Dimensions Left kidney size 9.65 cm . Right kidney size 9.23 cm . Left cortical dimension 1.37 cm . Right cortical dimension 1.38 cm . Aorta Proximal abdominal aorta 2.09 x 1.98 cm . Proximal abdominal aorta peak systolic velocity is 105.1 cm/sec . Distal abdominal aorta 1.53 x 1.56 cm . Distal abdominal aorta peak systolic velocity is 95.3 cm/sec . VL/Renal Artery Duplex Ultrasound Interpretation Summary Renal artery velocities are bilaterally normal. Renal-aortic ratios are also bi laterally normal. Renovascular resistance appears to be bilaterally normal . Acceleration times a re normal bilaterally. Cortical dimensions are bilaterally normal. Kidneys appear normal in size bilaterally. There is no evidence of hemodynamically significant renal artery stenosis on ei ther side. Ordering Physician: Geetha Galaviz Referring Physician: Geetha Galaviz Performed By: Audrey Fonseca RVT
== END | disposition home or self-care (01) ==
LOC: CVS 08:59
PROVIDERS: PCP Internal Medicine; Referring Provider Internal Medicine; Visit Provider Internal Medicine
DX: N28.9 Disorder of kidney and ureter, unspecified (principal)
CPT/HCPCS: 93975

== ENCOUNTER → 2023-09-20 | Outpatient (CLI) | payer OTHER, SELFPAY ==
--- NOTE | 2023-09-20 10:01 | US_ITS ---
STUDY: THYROID ULTRASOUND REASON FOR EXAM: Female, 53 years old. Abnormal thyroid function tests TECHNIQUE: Ultrasound evaluation of the thyroid was performed with real-time and static balderas-scale imaging. COMPARISON: 2018 FINDINGS: RIGHT LOBE: The right lobe of the thyroid gland measures 3.4 x 1.4 x 1.4 cm. There is a heterogeneous echotexture. There is a stable solid 0.7 x 0.6 x 0.8 cm nodule LEFT LOBE: The left lobe of the thyroid gland measures 3.5 x 1.2 x 1.3 cm. There is a heterogeneous echotexture. There are no demonstrated solid, cystic or complex lesions. ISTHMUS: The isthmus measures 2 mm. The regional lymph nodes are physiologic, largest on the left measures 1.8 x 0.8 x 0.7 cm. US/Thyroid IMPRESSION: Normal-sized heterogeneous thyroid gland with a stable 0.7 x 0.6 x 0.8 cm solid nodule in the right lobe. This nodule is solid or almost completely solid, hypoechoic, [id number], smoothly marginated and contains no echogenic foci. This nodule is moderately suspicious but no FNA or follow-up is necessary given the small size of this nodule. No significant interval change since the previous study Electronically Signed: Brock Louis MD at 15:45 EDT ,
== END | disposition home or self-care (01) ==
PROVIDERS: PCP Internal Medicine; Referring Provider Internal Medicine; Visit Provider Internal Medicine
DX: E01.0 Iodine-deficiency related diffuse (endemic) goiter (principal)
CPT/HCPCS: 76536

== ENCOUNTER → 2023-12-06 | Outpatient (CLI) | payer OTHER, SELFPAY ==
--- NOTE | 2023-12-06 15:54 | BI_ITS ---
MAMMOGRAPHY - BILATERAL SCREENING REASON FOR EXAM: Female, 53 years old. Routine annual screening examination. PERTINENT HISTORY: Non-contributory. TECHNIQUE: Digital bilateral breast enzo (3D mammographic acquisition) in the CC and MLO projections. 2-D mediolateral oblique (MLO) and craniocaudad (CC) views of both breasts were obtained. CAD: Full Field Digital Mammography with Computer Added Detection was performed. COMPARISON: Comparison is made with prior study September 24, 2022 and July 01, 2021. FINDINGS: Breast Composition: There are scattered areas of fibroglandular density. There are no dominant masses or suspicious calcifications. No other significant abnormalities are identified. There has been no significant change since the prior study. BI/SCRN MAMM (CAD)W/ENZO BILAT IMPRESSION: Stable bilateral screening mammogram. Yearly follow-up mammogram recommended. (A) ASSESSMENT CATEGORY: BIRADS Category 1: Negative. A letter regarding these results will be sent to the patient by the facility within 30 days. Approximately 10% of breast cancers are not detected by mammography. A normal mammogram should not delay biopsy of a clinically suspicious abnormality. [id number] Electronically Signed: Farrukh Simmons MD at 8:25 EDT ,
== END | disposition home or self-care (01) ==
LOC: OPBI 15:54
PROVIDERS: PCP Internal Medicine; Referring Provider Internal Medicine; Visit Provider Internal Medicine
DX: Z12.31 Encounter for screening mammogram for malignant neoplasm of breast (principal)
CPT/HCPCS: 77063; 77067

== ENCOUNTER → 2024-11-12 | Outpatient (CLI) | payer OTHER, SELFPAY ==
--- NOTE | 2024-11-12 15:13 | US_ITS ---
PROCEDURE: THYROID, 11/12/2024 REASON FOR EXAM: THYROID NODULE TECHNIQUE: Grayscale and color Doppler imaging of the thyroid was performed. COMPARISON: 09/20/2023 FINDINGS: Right lobe measures 3.6 x 0.9 x 0.8cm. Heterogeneous background echotexture with ill-defined hypoechoic nodular areas. No abnormal vascularity. Nodules as below: *Lower pole, 9 x 6 x 7 mm, solid, hypoechoic, TI-RADS 4, no follow-up. Left lobe measures 3.3 x 1.0 x 0.9 cm. Heterogeneous background echotexture with ill-defined hypoechoic nodular areas. No abnormal vascularity. No convincingly discrete solid or mostly solid nodules are identified noting that background parenchymal abnormality limits sensitivity. Isthmus measures 1 mm in thickness. Other: LEFT cervical node measures 14 x 6 x 7 mm with preserved fatty hilum. US/Thyroid IMPRESSION: 1. Assessment is TI-RADS 4. No nodules currently meet criteria for FNA or follo w-up per the below. 2. Heterogeneous and atrophic gland, appearance suggestive of possible Hashimot o thyroiditis. Correlate with clinical/laboratory evaluation. 3. Prominent but nonenlarged and morphologically normal LEFT cervical node, non specific and potentially reactive in the absence of known malignancy. Correlate with medical history and follow-up as indicated . Management recommendations for TI-RADS 4 findings: FNA if = 1.5 cm; Follow if = 1 cm at 1, 2, 3, and 5 years. Enlargment is defined as ?20% increase in at least two nodule dimensions, with a minimal increase of 2 mm or ?50% or greater increase in volume. Recommendations per ACR Thyroid Imaging, Reporting and Data System (TI-RADS): [employer] vo Paper of the ACR TI-RADS Committee, 2017 ([email or web address]/[email or web address]) Reading Location: [id number]
== END | disposition home or self-care (01) ==
LOC: US 15:09
PROVIDERS: PCP Internal Medicine; Referring Provider Internal Medicine; Visit Provider Internal Medicine
DX: E04.1 Nontoxic single thyroid nodule (principal)
CPT/HCPCS: 76536

== ENCOUNTER → 2024-12-06 | Outpatient (CLI) | payer OTHER, SELFPAY ==
--- NOTE | 2024-12-06 15:14 | BI_ITS ---
EXAM: SCRN MAMM (CAD)W/ENZO BILAT DATE: 12/06/2024 CLINICAL HISTORY: F, Age 54 y/o , SCREENING TECHNIQUE: Procedure Code: [id number] Modality: MG Procedure: SCRN MAMM (CAD)W/ENZO BILAT COMPARISON: Prior exam(s) dated 12/06/2023, 09/24/2022, 07/01/2021. FINDINGS: TISSUE DENSITY: There are scattered areas of fibroglandular density. Bilateral Breast Mammographic Findings: No significant masses, calcifications or other abnormalities are identified. BI/SCRN MAMM (CAD)W/ENZO BILAT IMPRESSION: There is no mammographic evidence of malignancy. OVERALL FINAL ASSESSMENT BI-RADS 1: NEGATIVE. RECOMMENDATION: Routine annual follow-up in 1 Year A letter with findings and recommendations will be mailed to the patient. Reading Location: [id number]
== END | disposition home or self-care (01) ==
PROVIDERS: PCP Internal Medicine; Referring Provider Internal Medicine; Visit Provider Internal Medicine
DX: Z12.31 Encounter for screening mammogram for malignant neoplasm of breast (principal)
CPT/HCPCS: 77063; 77067

== ENCOUNTER → 2025-01-03 | Outpatient (CLI) | payer OTHER, SELFPAY ==
--- NOTE | 2025-01-03 10:57 | BD_ITS ---
PROCEDURE: DEXA BONE DENSITY STUDY 01/03/2025 REASON FOR EXAM: F, age 54 y/o . Postmenopausal. TECHNIQUE: Procedure Code: BDDBD Modality: DX Procedure: DEXA BONE DENSITY STUDY COMPARISON: December 22, 2017. FINDINGS: BMD and T-SCORES Lumbar spine: 0.950 g/cm2, T-score -0.9 Levels: L1 through L4 Change from prior: Loss of 4.5%. Left femoral neck: 0.787 g/cm2, T-score -0.6 Femoral neck comparison data not recommended for monitoring change. Left total hip: 0.964 g/cm2, T-score 0.2 Change from prior: Loss of 7.4%. Right femoral neck: 0.730 g/cm2, T-score -1.1 Femoral neck comparison data not recommended for monitoring change. Right total hip: 0.920 g/cm2, T-score -0.2 Change from prior: Loss of 5.9%. The World Health Organization has defined the following categories based on bone density: Normal bone density: T-score equal to or greater than -1.0 Osteopenia: T-score between -1.0 and -2.5 Osteoporosis: T-score equal to or less than -2.5 FRAX (or Comparable) Fracture Risk Assessment: 10 Year Probability of Fracture: Major Osteoporotic Fracture: 5.9% Hip Fracture: 0.3% (Note: FRAX is not to be reported in setting of normal range bone density, osteoporosis on DEXA, known history of osteoporosis, prior osteoporotic hip or vertebral fracture, or for any patient undergoing pharmacological treatment for bone loss.) The National Osteoporosis Foundation (NOF) recommends pharmacological treatment for patients with a FRAX 10-year risk of 3% or higher for a hip fracture, or 20% or higher for a major osteoporotic fracture, to prevent osteoporosis and reduce fracture risk. The patient does not meet the pharmacological treatment recommendations for prevention of osteoporosis. BD/Dexa Bone Density Study IMPRESSION: OSTEOPENIA. Recommend follow-up as clinically warranted. Reading Location: [place] [id number]
== END | disposition home or self-care (01) ==
LOC: OPBD 10:56
PROVIDERS: PCP Internal Medicine; Referring Provider Internal Medicine; Visit Provider Internal Medicine
DX: Z78.0 Asymptomatic menopausal state (principal)
CPT/HCPCS: 77080